=== PATIENT | female | born 1980 | race Caucasian/White ===

== ENCOUNTER 2017-03-26 09:03 | Emergency (ER) | payer OTHER, MEDICAID ==
[~2017-03-26] VITALS: Ht 154.9 cm; Wt 72.6 kg
[2017-03-26 09:10] VITALS: BP 127/91
[2017-03-26] MEDS ORDERED: INDERAL XL80 MG (09:12)
== END 2017-03-26 09:22 | disposition home or self-care (01) ==
LOC: M.ERS 09:03
DX: J02.9 Acute pharyngitis, unspecified (principal); I10 Essential (primary) hypertension; Z88.0 Allergy status to penicillin; Z88.1 Allergy status to other antibiotic agents; Z88.2 Allergy status to sulfonamides

== ENCOUNTER 2017-04-23 20:12 | Emergency (ER) | payer OTHER, MEDICAID ==
[~2017-04-23] VITALS: Ht 154.9 cm; Wt 72.6 kg
[~2017-04-23 20:12] MED LIST: INDERAL XL80 MG
[2017-04-23] MEDS ORDERED: ZPAK PO (20:46)
[2017-04-23] MEDS ORDERED: TRAMADOL 50 MG50 MG PO (20:47)
[2017-04-23 21:07] VITALS: BP 104/76
== END 2017-04-23 21:07 | disposition home or self-care (01) ==
LOC: M.ERS 20:12
DX: H66.91 Otitis media, unspecified, right ear (principal); I10 Essential (primary) hypertension; Z88.0 Allergy status to penicillin; Z88.2 Allergy status to sulfonamides

== ENCOUNTER 2017-09-13 22:51 | Emergency (ER) | payer OTHER, MEDICAID ==
[~2017-09-13] VITALS: Ht 154.9 cm; Wt 79.4 kg
[~2017-09-13 22:51] MED LIST changes: +TRAMADOL 50 MG50 MG PO; +ZPAK PO
[2017-09-14] MEDS ORDERED: ZPAK PO (00:27)
[2017-09-14 00:36] VITALS: BP 122/68
== END 2017-09-14 00:37 | disposition home or self-care (01) ==
LOC: M.ERS 22:51
DX: J02.9 Acute pharyngitis, unspecified (principal); I10 Essential (primary) hypertension; G43.909 Migraine, unspecified, not intractable, without status migrainosus; Z88.0 Allergy status to penicillin; Z88.1 Allergy status to other antibiotic agents; Z88.2 Allergy status to sulfonamides